=== PATIENT | male | born 1950 | race Caucasian/White ===

== ENCOUNTER 2019-10-07 03:10 | Emergency (ER) | payer MEDICARE ==
[~2019-10-07] VITALS: Ht 172.7 cm; Wt 79.5 kg
[2019-10-07] MEDS ORDERED: LIDOcaine 1% W/epiNEPHrine 1:200,000 10ml vial IJ ONE (03:40)
[2019-10-07] MEDS ORDERED: HYDROcodone/acetaminophen 5mg/325mg tablet PO ONE (03:40)
[2019-10-07] MEDS ORDERED: BUPIVAcaine/PF 2.5mg/ml (0.25%) 10ml vial IJ ONE (03:40)
[2019-10-07] MEDS ORDERED: naproxen 500mg tablet PO ONE (03:40)
[2019-10-07] MEDS ORDERED: penicillin V potassium 500mg tablet PO ONE (03:40)
[2019-10-07] MEDS ORDERED: AMOX-422 PO (03:43)
[2019-10-07] MEDS ORDERED: NAPR-56 PO (03:43)
[2019-10-07] MEDS ORDERED: HYDR-4383 PO (03:43)
--- NOTE | 2019-10-07 04:44 | NUR ---
MD INSTRUCTED ME TO HOLD THE PT FOR 10 MIN TO WATCH HIM.
[2019-10-07 04:53] VITALS: BP 140/90
== END 2019-10-07 04:54 | disposition home or self-care (01) ==
LOC: ER 03:11
DX: K02.9 Dental caries, unspecified (principal); K04.7 Periapical abscess without sinus; F17.200 Nicotine dependence, unspecified, uncomplicated; Z91.030 Bee allergy status; Z79.899 Other long term (current) drug therapy
CPT/HCPCS: 64400; 99284